=== PATIENT | male | born 1995 | race African-American/Black ===

== ENCOUNTER 2019-10-07 00:31 | Inpatient (IN) | payer SELFPAY ==
[~2019-10-07] VITALS: Ht 182.9 cm; Wt 90.9 kg
--- NOTE | 2019-10-07 00:49 | PHYS DOC ---
General Adult EDM: Chief Complaint: ABDOMINAL PAIN HPI: HPI: The history was obtained from the patient. Patient is a 24-year-old male with PMH occasional marijuana usage who presents with a chief complaint of abdominal pain. Patient states he had gradual onset abdominal pain 3 hours ago. He states the pain is aching in nature. He states it is constant. He states it is located in his epigastric and umbilicus region. He states he tried to eat a cheeseburger 1 hour ago and states it made the pain worse. Did try 2 Tylenol tablets at home which also made the pain worse. Denies vomiting but notes mild nausea. Denies fevers. Denies stool changes. Denies urinary symptoms. States that he smokes marijuana approximately every other day. Denies any history of similar complaints. Denies any abdominal surgical history. Denies alcohol usage. No other complaints. Review of Systems: Review of Systems: Constitutional: Denies fever or chills. [] Eyes: Denies change in visual acuity. [] HENT: Denies nasal congestion or sore throat. [] Respiratory: Denies cough or shortness of breath. [] Cardiovascular: Denies chest pain or edema. [] GI: Positive for abdominal pain : Denies dysuria. [] Musculoskeletal: Denies back pain or joint pain. [] Integument: Denies rash. [] Neurologic: Denies headache, focal weakness or sensory changes. [] Endocrine: Denies polyuria or polydipsia. [] Lymphatic: Denies swollen glands. [] Psychiatric: Denies depression or anxiety. [] Heart Score: Risk Factors: Risk Factors: DM, Current or recent (<one month) smoker, HTN, HLP, family history of CAD, obesity. Risk Scores: Score 0 - 3: 2.5% MACE over next 6 weeks - Discharge Home Score 4 - 6: 20.3% MACE over next 6 weeks - Admit for Clinical Observation Score 7 - 10: 72.7% MACE over next 6 weeks - Early Invasive Strategies Physical Exam: PE: Constitutional: Well developed, well nourished, no acute distress, non-toxic appearance. [] HENT: Normocephalic, atraumatic, bilateral external ears normal, oropharynx moist, no oral exudates, nose normal. [] Eyes: PERRLA, EOMI, conjunctiva normal, no discharge. [] Neck: Normal range of motion, no tenderness, supple, no stridor. [] Cardiovascular:Heart rate regular rhythm, no murmur [] Lungs & Thorax: Bilateral breath sounds clear to auscultation [] Abdomen: Mild reproducible tenderness to palpation in the epigastric and umbilicus regions. No involuntary guarding or rigidity noted. No acute peritonitis. Skin: Warm, dry, no erythema, no rash. [] Back: No tenderness, no CVA tenderness. [] Extremities: No tenderness, no cyanosis, no clubbing, ROM intact, no edema. [] Neurologic: Alert and oriented X 3, normal motor function, normal sensory function, no focal deficits noted. [] Psychologic: Affect normal, judgement normal, mood normal. [] Current Patient Data: Labs: Laboratory Tests Test 10/07/19 00:47 10/07/19 01:08 White Blood Count 5.8 x10^3/uL Red Blood Count 4.52 x10^6/uL Hemoglobin 14.2 g/dL Hematocrit 41.6 % Mean Corpuscular Volume 92 fL Mean Corpuscular Hemoglobin 31 pg Mean Corpuscular Hemoglobin Concent 34 g/dL Red Cell Distribution Width 13.6 % Platelet Count 230 x10^3/uL Neutrophils (%) (Auto) 62 % Lymphocytes (%) (Auto) 27 % Monocytes (%) (Auto) 7 % Eosinophils (%) (Auto) 2 % Basophils (%) (Auto) 1 % Neutrophils # (Auto) 3.6 x10^3/uL Lymphocytes # (Auto) 1.6 x10^3/uL Monocytes # (Auto) 0.4 x10^3/uL Eosinophils # (Auto) 0.1 x10^3/uL Basophils # (Auto) 0.1 x10^3/uL Sodium Level 138 mmol/L Potassium Level 2.9 mmol/L Chloride Level 101 mmol/L Carbon Dioxide Level 32 mmol/L Anion Gap 5 Blood Urea Nitrogen 7 mg/dL Creatinine 1.1 mg/dL Estimated GFR (Cockcroft-Gault) 83.7 BUN/Creatinine Ratio 6 Glucose Level 138 mg/dL Calcium Level 9.1 mg/dL Magnesium Level 1.9 mg/dL Total Bilirubin 0.8 mg/dL Aspartate Amino Transf (AST/SGOT) 35 U/L Alanine Aminotransferase (ALT/SGPT) 28 U/L Alkaline Phosphatase 51 U/L Total Protein 7.9 g/dL Albumin 3.8 g/dL Albumin/Globulin Ratio 0.9 Lipase 95 U/L Urine Collection Type Unknown Urine Color Yellow Urine Clarity Clear Urine pH 5.5 Urine Specific [place] 1.015 Urine Protein Negative mg/dL Urine Glucose (UA) Negative mg/dL Urine Ketones (Stick) Negative mg/dL Urine Blood Negative Urine Nitrite Negative Urine Bilirubin Negative Urine Urobilinogen Dipstick 0.2 mg/dL Urine Leukocyte Esterase Negative Urine RBC Rare /HPF Urine WBC 1-4 /HPF Urine Squamous Epithelial Cells Few /LPF Urine Bacteria 0 /HPF Urine Mucus Mod /LPF Current Medications Medications (Trade) Dose Ordered Sig/Enrique Route PRN Reason Start Time Stop Time Status Last Admin Dose Admin Sodium Chloride 1,000 ml @ 1,000 mls/hr 1X ONCE IV 10/07/19 01:15 10/07/19 02:14 DC 10/07/19 00:59 Ondansetron HCl (Zofran) 4 mg 1X ONCE IVP 10/07/19 01:15 10/07/19 01:16 DC 10/07/19 00:59 Morphine Sulfate (Morphine Sulfate) 4 mg 1X ONCE IV 10/07/19 01:15 10/07/19 01:16 DC Famotidine (Pepcid Vial) 20 mg 1X ONCE IVP 10/07/19 01:15 10/07/19 01:16 DC 10/07/19 00:59 Potassium Chloride/Water 100 ml @ 100 mls/hr Q1H IV 10/07/19 02:00 10/07/19 09:59 10/07/19 01:46 Magnesium Sulfate 50 ml @ 50 mls/hr 1X ONCE IV 10/07/19 01:30 10/07/19 02:29 DC 10/07/19 01:45 Iohexol (Omnipaque 300 Mg/ml) 75 ml 1X ONCE IV 10/07/19 02:00 10/07/19 02:01 DC 10/07/19 01:44 Info (CONTRAST GIVEN -- Rx MONITORING) 1 each PRN DAILY PRN MC SEE COMMENTS 10/07/19 01:30 10/09/19 01:29 Vital Signs: Vital Signs Date Time Temp Pulse Resp B/P (MAP) Pulse Ox O2 Delivery O2 Flow Rate FiO2 10/07/19 00:35 98.7 67 18 151/77 (101) 99 Room Air 98.7 EKG: EKG: EKG consistent with normal sinus rhythm. Ventricular rate of 59 bpm. Right axis noted. Nonspecific interventricular conduction delay present. No acute ischemic changes noted. [] Radiology/Procedures: Radiology/Procedures: [] [address] [place] [address] IMAGING REPORT Signed PATIENT: ADDI SINGH ACCOUNT: [id number] : 1995 LOCATION: ER AGE: 24 SEX: M EXAM STATUS: REG ER ORD. PHYSICIAN: REJI DOMÍNGUEZ DO REASON: diffuse abdominal pain, OMNI 300, 75 ML IV PROCEDURE: CT ABD PELV W/ IV CONTRST ONLY INDICATION: Reason: diffuse abdominal pain, OMNI 300, 75 ML IV / Spl. Instructions: / History: COMPARISON: None. TECHNIQUE: Axial CT images obtained through the abdomen and pelvis with contrast. One or more of the following individualized dose reduction techniques were utilized for this examination: 1. Automated exposure control; 2. Adjustment of the mA and/or kV according to patient size; 3. Use of iterative reconstruction technique. FINDINGS: Partial visualization of nodular opacity at the right chest base. Abdominal aorta is not aneurysmal. Mild periportal low density. No peripancreatic fluid collection. Spleen unremarkable. No hydronephrosis. Urinary bladder is largely decompressed. No dilated loops of bowel to suggest obstruction. The appendix is partially seen in the right lower quadrant with air within the lumen with other portions obscured by adjacent opacified loops of bowel. Does not appear grossly dilated in visualized portion. IMPRESSION: * No evidence of bowel obstruction or hydronephrosis. * The appendix is only partially seen secondary to unopacified loops of bowel in the region. Does not appear inflamed in the partially visualized portion. * Nodular opacity at the right lung base which could be from atelectasis but would correlate with infectious symptoms to ensure it is not infectious in nature. * Mild periportal edema. Could be related to the patient's hydration status but would correlate with symptoms and lab markers to ensure that there is not a pathologic cause such as hepatic or biliary inflammation. Electronically signed by: Po Mcguire MD (10/07/2019 2:18 AM) [id number] DICTATED and SIGNED BY: PO MCGUIRE MD DATE: 10/07/19217 Course & Med Decision Making: Course & Med Decision Making Pertinent Labs and Imaging studies reviewed. (See chart for details) Patient is a 24-year-old male who presents with chief complaint of acute onset abdominal pain. Initial vital signs unremarkable. Exam noted above. Chemistry notable for potassium of 2.9. Unclear etiology given the patient denies any vomiting or diarrhea. CT imaging reveals no acute surgical abnormality. Of note, mild periportal edema noticed. No signs of elevated liver enzymes. Bilirubin within normal limits. At this time no obvious identifiable surgical emergency. I do feel the patient benefit from hospitalization for potassium replacement. He is agreeable to this. Appropriate for hospitalization. Dragon Disclaimer: Dragon Disclaimer: This electronic medical record was generated, in whole or in part, using a voice recognition dictation system. Departure Departure Impression: Primary Impression: Hypokalemia Additional Impressions: Abdominal pain Qualified Codes: R10.84 - Generalized abdominal pain Abnormal abdominal CT scan Disposition: HOME, SELF-CARE Condition: STABLE Justicifation of Admission Dx: Justifications for Admission: Justification of Admission Dx: Yes Chronic Renal Failure: Electrolyte Abnormality REJI DOMÍNGUEZ DO Oct 07, 2019 00:49
[2019-10-07 00:55] LABS: BASO # 0.1 x10^3/uL (0.0-0.2); BASO % 1 % (0-3); EOS # 0.1 x10^3/uL (0.0-0.7); EOS % 2 % (0-3); HEMATOCRIT 41.6 % (39.0-53.0); HEMOGLOBIN 14.2 g/dL (13.0-17.5); LYMPH # 1.6 x10^3/uL (1.0-4.8); LYMPH % 27 % (24-48); MEAN CORPUSCULAR HEMOGLOBIN 31 pg (25-35); MEAN CORPUSCULAR HGB CONC 34 g/dL (31-37); MEAN CORPUSCULAR VOLUME 92 fL (79-100); MONO # 0.4 x10^3/uL (0.0-1.1); MONO % 7 % (0-9); NEUT # 3.6 x10^3/uL (1.8-7.7); NEUT % 62 % (31-73); PLATELET COUNT 230 x10^3/uL (140-400); RED BLOOD COUNT 4.52 x10^6/uL (4.30-5.70); RED CELL DISTRIBUTION WIDTH 13.6 % (11.5-14.5); WHITE BLOOD COUNT 5.8 x10^3/uL (4.0-11.0)
[2019-10-07 01:08] LABS: ALBUMIN 3.8 g/dL (3.4-5.0); ALBUMIN/GLOBULIN RATIO 0.9 (1.0-1.7); CALCIUM 9.1 mg/dL (8.5-10.1); CREATININE 1.1 mg/dL (0.7-1.3); GFR 83.7; TOTAL BILIRUBIN 0.8 mg/dL (0.2-1.0); TOTAL PROTEIN 7.9 g/dL (6.4-8.2)
[2019-10-07 01:13] LABS: POTASSIUM 2.9 mmol/L (3.5-5.1)
[2019-10-07 01:14] LABS: BILIRUBIN,URINE NEGATIVE (NEG); CLARITY,URINE CLEAR; COLOR,URINE YELLOW; NITRITE,URINE NEGATIVE (NEG); PH,URINE 5.5 (<5.0-8.0); PROTEIN,URINE NEGATIVE (NEG-TRACE); UROBILINOGEN,URINE 0.2 mg/dL (0.2 mg/dL)
[2019-10-07] MEDS ORDERED: IV NORMAL SALINE 1000ML BAG 1,000 ML IV ONE (01:15)
[2019-10-07] MEDS ORDERED: MORPHINE SULFATE 4 MG/ML VIAL. IV ONE (01:15)
[2019-10-07] MEDS ORDERED: ONDANSETRON PF 4 MG/2 ML VIAL. IVP ONE (01:15)
[2019-10-07] MEDS ORDERED: FAMOTIDINE 20 MG/2 ML VIAL IVP ONE (01:15)
[2019-10-07 01:24] LABS: SQUAMOUS EPITHELIAL CELL,UR FEW /LPF
[2019-10-07 01:25] LABS: BACTERIA,URINE 0 /HPF (0-FEW); RBC,URINE RARE /HPF (0-2)
[2019-10-07] MEDS ORDERED: CONTRAST GIVEN. MC PRN (01:30)
[2019-10-07] MEDS ORDERED: MAGNESIUM SULFATE 2GM 50 ML IV ONE (01:30)
[2019-10-07] MEDS: POTASSIUM CHLORIDE 10MEQ 100 ML IV SCH ×5 (01:46→08:00)
[2019-10-07] MEDS ORDERED: IOHEXOL 300 MG/ML 100ML VIAL. IV ONE (02:00)
--- NOTE | 2019-10-07 02:21 | RAD ---
INDICATION: Reason: diffuse abdominal pain, OMNI 300, 75 ML IV / Spl. Instructions: / History: COMPARISON: None. TECHNIQUE: Axial CT images obtained through the abdomen and pelvis with contrast. One or more of the following individualized dose reduction techniques were utilized for this examination: 1. Automated exposure control; 2. Adjustment of the mA and/or kV according to patient size; 3. Use of iterative reconstruction technique. FINDINGS: Partial visualization of nodular opacity at the right chest base. Abdominal aorta is not aneurysmal. Mild periportal low density. No peripancreatic fluid collection. Spleen unremarkable. No hydronephrosis. Urinary bladder is largely decompressed. No dilated loops of bowel to suggest obstruction. The appendix is partially seen in the right lower quadrant with air within the lumen with other portions obscured by adjacent opacified loops of bowel. Does not appear grossly dilated in visualized portion. IMPRESSION: * No evidence of bowel obstruction or hydronephrosis. * The appendix is only partially seen secondary to unopacified loops of bowel in the region. Does not appear inflamed in the partially visualized portion. * Nodular opacity at the right lung base which could be from atelectasis but would correlate with infectious symptoms to ensure it is not infectious in nature. * Mild periportal edema. Could be related to the patient's hydration status but would correlate with symptoms and lab markers to ensure that there is not a pathologic cause such as hepatic or biliary inflammation. Electronically signed by: Adonis Vallejo MD (10/07/2019 2:18 AM) [id number]
[2019-10-07] MEDS ORDERED: MORPHINE SULFATE 4 MG/ML VIAL. IV PRN (02:45)
[2019-10-07] MEDS ORDERED: ONDANSETRON PF 4 MG/2 ML VIAL. IV PRN ×2 (02:45→07:30)
--- NOTE | 2019-10-07 07:16 | EKG ---
[facility] [address] [place] [address] Test Date: 2019-10-07 Test Time: 03:15:09 Pat Name: ADDI SINGH Department: Room: Gender: M Development And Housing Director: : 1995 Requested By: REJI DOMÍNGUEZ Order Number: [id number] Reading MD: Measurements Intervals [place] Rate: 59 P: 54 CA: 208 QRS: 115 QRSD: 102 T: 71 QT: 416 QTc: 416 Interpretive Statements SINUS RHYTHM ABNORMAL RIGHT AXIS DEVIATION LEFT POSTERIOR FASCICULAR BLOCK ABNORMAL ECG RI6.02 No previous ECG available for comparison
--- NOTE | 2019-10-07 07:41 | PDOC1 ---
History and Physical Date of Admission Date of Admission DATE: 10/07/19 TIME: 07:38 Identification/Chief Complaint Chief Complaint Abdominal pain Source Source: Patient History of Present Illness History of Present Illness Mr Watters is a 24-year-old male with PMH occasional marijuana usage who presents with a chief complaint of abdominal pain. Patient states he had gradual onset abdominal pain 3 hours prior to ED arrival He states the pain is aching in nature. He states it is constant. He states it is located in his epigastric and umbilicus region. He states he tried to eat a cheeseburger 1 hour ago and states it made the pain worse. Did try 2 Tylenol tablets at home which also made the pain worse. vomiting and mild nausea. Denies fevers. He did have 3 episodes of diarrhea overnight.. Denies urinary symptoms. States that he smokes marijuana approximately every other day. Denies any history of similar complaints. Denies any abdominal surgical history. Denies alcohol usage. No other complaints. He does note that he ate some reheated chicken the night before with canned green beans that were reheated and tasted "off". Labs significant for NA 138, K2.9, CR 1.1, mag 1.9 EKG NSR with rightward axis otherwise no ST segment or T wave changes. CT abdomen pelvis with no evidence of bowel obstruction or hydronephrosis and appendix does not appear inflamed in the partially visualized portion, noted with periportal edema. Admitted for further treatment. Past Medical History Cardiovascular: No pertinent hx Past Surgical History Past Surgical History: No pertinent history Family History Family History: Hypertension Social History Smoke: No ALCOHOL: rare Drugs: Marijuana Current Problem List Problem List Problems Medical Problems: (1) Abdominal pain Status: Acute (2) Abnormal abdominal CT scan Status: Acute (3) Hypokalemia Status: Acute Current Medications Current Medications Current Medications Sodium Chloride 1,000 ml @ 1,000 mls/hr 1X ONCE IV Last administered on 10/07/19at 00:59; Start 10/07/19 at 01:15; Stop 10/07/19 at 02:14; Status DC Ondansetron HCl (Zofran) 4 mg 1X ONCE IVP Last administered on 10/07/19at 00:59; Start 10/07/19 at 01:15; Stop 10/07/19 at 01:16; Status DC Morphine Sulfate (Morphine Sulfate) 4 mg 1X ONCE IV ; Start 10/07/19 at 01:15; Stop 10/07/19 at 01:16; Status DC Famotidine (Pepcid Vial) 20 mg 1X ONCE IVP Last administered on 10/07/19at 00:59; Start 10/07/19 at 01:15; Stop 10/07/19 at 01:16; Status DC Potassium Chloride/Water 100 ml @ 100 mls/hr Q1H IV Last administered on 10/07/19at 06:06; Start 10/07/19 at 02:00; Stop 10/07/19 at 09:59 Magnesium Sulfate 50 ml @ 50 mls/hr 1X ONCE IV Last administered on 10/07/19at 01:45; Start 10/07/19 at 01:30; Stop 10/07/19 at 02:29; Status DC Iohexol (Omnipaque 300 Mg/ml) 75 ml 1X ONCE IV Last administered on 10/07/19at 01:44; Start 10/07/19 at 02:00; Stop 10/07/19 at 02:01; Status DC Info (CONTRAST GIVEN -- Rx MONITORING) 1 each PRN DAILY PRN MC SEE COMMENTS; Start 10/07/19 at 01:30; Stop 10/09/19 at 01:29 Ondansetron HCl (Zofran) 4 mg PRN Q8HRS PRN IV NAUSEA/VOMITING 1ST CHOICE; Start 10/07/19 at 02:45; Stop 10/07/19 at 07:18; Status DC Morphine Sulfate (Morphine Sulfate) 4 mg PRN Q2HR PRN IV SEVERE PAIN 7-10; Start 10/07/19 at 02:45; Stop 10/08/19 at 02:44 Ondansetron HCl (Zofran) 4 mg PRN Q4HRS PRN IV NAUSEA/VOMITING 1ST CHOICE; Start 10/07/19 at 07:30 Allergies Allergies: Coded Allergies: No Known Drug Allergies (Unverified , 10/07/19) ROS General: No: Chills, Night Sweats, Fatigue, Malaise, Appetite, Other PSYCHOLOGICAL ROS: No: Anxiety, Behavioral Disorder, Concentration difficultie, Decreased libido, Depression, Disorientation, Hallucinations, Hostility, Irritablity, Memory difficulties, Mood Swings, Obsessive thoughts, Physical abuse, Sexual abuse, Sleep disturbances, Suicidal ideation, Other Eyes: No Blurry vision, No Decreased vision, No Double vision, No Dry eyes, No Excessive tearing, No Eye Pain, No Itchy Eyes, No Loss of vision, No Photophobia, No Scotomata, No Uses contacts, No Uses glasses, No Other HEENT: No: Heacaches, Visual Changes, Hearing change, Nasal congestion, Nasal discharge, Oral lesions, Sinus pain, Sore Throat, Epistaxis, Sneezing, Snoring, Tinnitus, Vertigo, Vocal changes, Other ALLERGY AND IMMUNOLOGY: No: Hives, Insect Bite Sensitivity, Itchy/Watery Eyes, Nasal Congestion, Post Nasal Drip, Seasonal Allergies, Other Hematological and Lymphatic: No: Bleeding Problems, Blood Clots, Blood Transfusions, Brusing, Night Sweats, Pallor, Swollen Lymph Nodes, Other ENDOCRINE: No: Breast Changes, Galactorrhea, Hair Pattern Changes, Hot Flashes, Malaise/lethargy, Mood Swings, Palpitations, Polydipsia/polyuria, Skin Changes, Temperature Intolerance, Unexpected Weight Changes, Other Breast: No New/Changing Breast Lumps, No Nipple changes, No Nipple discharge, No Other Respiratory: No: Cough, Hemoptysis, Orthopnea, Pleuritic Pain, Shortness of breath, SOB with excertion, Sputum Changes, Stridor, Tachypnea, Wheezing, Other Cardiovascular: No Chest Pain, No Palpitations, No Orthopnea, No Paroxysmal Noc. Dyspnea, No Edema, No Lt Headedness, No Other Gastrointestinal: Yes Nausea, Yes Vomiting, Yes Abdominal Pain, Yes Diarrhea; No Constipation, No Melena, No Hematochezia, No Other Genitourinary: No Dysuria, No Frequency, No Incontinence, No Hematuria, No Retention, No Discharge, No Urgency, No Pain, No Flank Pain, No Other, No , No , No , No , No , No , No Musculoskeletal: No Gait Disturbance, No Joint Pain, No Joint Stiffness, No Lashaun nt Swelling, No Muscle Pain, No Muscular Weakness, No Pain In:, No Swelling In:, No Other Neurological: No Behavorial Changes, No Bowel/Bladder ControlChng, No Confusion, No Dizziness, No Gait Disturbance, No Headaches, No Impaired Co ord/balance, No Memory Loss, No Numbness/Tingling, No Seizures, No Speech Problems, No Tremors, No Visual Changes, No Weakness, No Other Skin: No Dry Skin, No Eczema, No Hair Changes, No Lumps, No Mole Changes, No Mottling, No Nail Changes, No Pruritus, No Rash, No Skin Lesion Changes, No Other, No Acne Physical Exam General: Alert, Oriented X3, Cooperative, No acute distress HEENT: Atraumatic, PERRLA, EOMI, Mucous membr. moist/pink Lungs: Clear to auscultation, Normal air movement Heart: S1S2, RRR, no thrills, no rubs, no gallops, no murmurs Abdomen: Normal bowel sounds, Soft, No tenderness, No hepatosplenomegaly, No masses Rectal Exam: not examined Extremities: No clubbing, No cyanosis, No edema, Normal pulses, No tenderness/swelling Skin: No rashes, No breakdown, No significant lesion Neuro: Normal gait, Normal speech, Strength at 5/5 X4 ext, Normal tone, Sensation intact, Cranial nerves 3-12 NL, Reflexes 2+ Psych/Mental Status: Mental status NL, Mood NL Vitals Vitals Vital Signs Date Time Temp Pulse Resp B/P (MAP) Pulse Ox O2 Delivery O2 Flow Rate FiO2 10/07/19 00:35 98.7 67 18 151/77 (101) 99 Room Air 98.7 Labs Labs Laboratory Tests Test 10/07/19 00:47 10/07/19 01:08 White Blood Count 5.8 x10^3/uL (4.0-11.0) Red Blood Count 4.52 x10^6/uL (4.30-5.70) Hemoglobin 14.2 g/dL (13.0-17.5) Hematocrit 41.6 % (39.0-53.0) Mean Corpuscular Volume 92 fL (79-100) Mean Corpuscular Hemoglobin 31 pg (25-35) Mean Corpuscular Hemoglobin Concent 34 g/dL (31-37) Red Cell Distribution Width 13.6 % (11.5-14.5) Platelet Count 230 x10^3/uL (140-400) Neutrophils (%) (Auto) 62 % (31-73) Lymphocytes (%) (Auto) 27 % (24-48) Monocytes (%) (Auto) 7 % (0-9) Eosinophils (%) (Auto) 2 % (0-3) Basophils (%) (Auto) 1 % (0-3) Neutrophils # (Auto) 3.6 x10^3/uL (1.8-7.7) Lymphocytes # (Auto) 1.6 x10^3/uL (1.0-4.8) Monocytes # (Auto) 0.4 x10^3/uL (0.0-1.1) Eosinophils # (Auto) 0.1 x10^3/uL (0.0-0.7) Basophils # (Auto) 0.1 x10^3/uL (0.0-0.2) Sodium Level 138 mmol/L (136-145) Potassium Level 2.9 mmol/L (3.5-5.1) Chloride Level 101 mmol/L (98-107) Carbon Dioxide Level 32 mmol/L (21-32) Anion Gap 5 (6-14) Blood Urea Nitrogen 7 mg/dL (8-26) Creatinine 1.1 mg/dL (0.7-1.3) Estimated GFR (Cockcroft-Gault) 83.7 BUN/Creatinine Ratio 6 (6-20) Glucose Level 138 mg/dL (70-99) Calcium Level 9.1 mg/dL (8.5-10.1) Magnesium Level 1.9 mg/dL (1.8-2.4) Total Bilirubin 0.8 mg/dL (0.2-1.0) Aspartate Amino Transf (AST/SGOT) 35 U/L (15-37) Alanine Aminotransferase (ALT/SGPT) 28 U/L (16-63) Alkaline Phosphatase 51 U/L (46-116) Total Protein 7.9 g/dL (6.4-8.2) Albumin 3.8 g/dL (3.4-5.0) Albumin/Globulin Ratio 0.9 (1.0-1.7) Lipase 95 U/L (73-393) Urine Collection Type Unknown Urine Color Yellow Urine Clarity Clear Urine pH 5.5 (<5.0-8.0) Urine Specific [place] 1.015 (1.000-1.030) Urine Protein Negative mg/dL (NEG-TRACE) Urine Glucose (UA) Negative mg/dL (NEG) Urine Ketones (Stick) Negative mg/dL (NEG) Urine Blood Negative (NEG) Urine Nitrite Negative (NEG) Urine Bilirubin Negative (NEG) Urine Urobilinogen Dipstick 0.2 mg/dL (0.2 mg/dL) Urine Leukocyte Esterase Negative (NEG) Urine RBC Rare /HPF (0-2) Urine WBC 1-4 /HPF (0-4) Urine Squamous Epithelial Cells Few /LPF Urine Bacteria 0 /HPF (0-FEW) Urine Mucus Mod /LPF Laboratory Tests Test 10/07/19 00:47 10/07/19 01:08 White Blood Count 5.8 x10^3/uL (4.0-11.0) Red Blood Count 4.52 x10^6/uL (4.30-5.70) Hemoglobin 14.2 g/dL (13.0-17.5) Hematocrit 41.6 % (39.0-53.0) Mean Corpuscular Volume 92 fL (79-100) Mean Corpuscular Hemoglobin 31 pg (25-35) Mean Corpuscular Hemoglobin Concent 34 g/dL (31-37) Red Cell Distribution Width 13.6 % (11.5-14.5) Platelet Count 230 x10^3/uL (140-400) Neutrophils (%) (Auto) 62 % (31-73) Lymphocytes (%) (Auto) 27 % (24-48) Monocytes (%) (Auto) 7 % (0-9) Eosinophils (%) (Auto) 2 % (0-3) Basophils (%) (Auto) 1 % (0-3) Neutrophils # (Auto) 3.6 x10^3/uL (1.8-7.7) Lymphocytes # (Auto) 1.6 x10^3/uL (1.0-4.8) Monocytes # (Auto) 0.4 x10^3/uL (0.0-1.1) Eosinophils # (Auto) 0.1 x10^3/uL (0.0-0.7) Basophils # (Auto) 0.1 x10^3/uL (0.0-0.2) Sodium Level 138 mmol/L (136-145) Potassium Level 2.9 mmol/L (3.5-5.1) Chloride Level 101 mmol/L (98-107) Carbon Dioxide Level 32 mmol/L (21-32) Anion Gap 5 (6-14) Blood Urea Nitrogen 7 mg/dL (8-26) Creatinine 1.1 mg/dL (0.7-1.3) Estimated GFR (Cockcroft-Gault) 83.7 BUN/Creatinine Ratio 6 (6-20) Glucose Level 138 mg/dL (70-99) Calcium Level 9.1 mg/dL (8.5-10.1) Magnesium Level 1.9 mg/dL (1.8-2.4) Total Bilirubin 0.8 mg/dL (0.2-1.0) Aspartate Amino Transf (AST/SGOT) 35 U/L (15-37) Alanine Aminotransferase (ALT/SGPT) 28 U/L (16-63) Alkaline Phosphatase 51 U/L (46-116) Total Protein 7.9 g/dL (6.4-8.2) Albumin 3.8 g/dL (3.4-5.0) Albumin/Globulin Ratio 0.9 (1.0-1.7) Lipase 95 U/L (73-393) Urine Collection Type Unknown Urine Color Yellow Urine Clarity Clear Urine pH 5.5 (<5.0-8.0) Urine Specific [place] 1.015 (1.000-1.030) Urine Protein Negative mg/dL (NEG-TRACE) Urine Glucose (UA) Negative mg/dL (NEG) Urine Ketones (Stick) Negative mg/dL (NEG) Urine Blood Negative (NEG) Urine Nitrite Negative (NEG) Urine Bilirubin Negative (NEG) Urine Urobilinogen Dipstick 0.2 mg/dL (0.2 mg/dL) Urine Leukocyte Esterase Negative (NEG) Urine RBC Rare /HPF (0-2) Urine WBC 1-4 /HPF (0-4) Urine Squamous Epithelial Cells Few /LPF Urine Bacteria 0 /HPF (0-FEW) Urine Mucus Mod /LPF Images Images CT abdomen/pelvis: Partial visualization of nodular opacity at the right chest base. Abdominal aorta is not aneurysmal. Mild periportal low density. No peripancreatic fluid collection. Spleen unremarkable. No hydronephrosis. Urinary bladder is largely decompressed. No dilated loops of bowel to suggest obstruction. The appendix is partially seen in the right lower quadrant with air within the lumen with other portions obscured by adjacent opacified loops of bowel. Does not appear grossly dilated in visualized portion. IMPRESSION: * No evidence of bowel obstruction or hydronephrosis. * The appendix is only partially seen secondary to unopacified loops of bowel in the region. Does not appear inflamed in the partially visualized portion. * Nodular opacity at the right lung base which could be from atelectasis but would correlate with infectious symptoms to ensure it is not infectious in nature. * Mild periportal edema. Could be related to the patient's hydration status but would correlate with symptoms and lab markers to ensure that there is not a pathologic cause such as hepatic or biliary inflammation. VTE Prophylaxis Ordered VTE Prophylaxis Devices: No VTE Pharmacological Prophylaxi: No Assessment/Plan Assessment/Plan A/P: Hypokalemia - IV replacement 80meq, will replace 1 g mag. Repeat later today. Intractable nausea and vomiting - improved with IV antiemetics. likely gastroenteritis from reheated food Diarrhea - already resolved, likely food poisoning FEN - NPO, will try ADAT PPX - SCDs FULL CODE Dispo - inpatient for hypokalemia Justifications for Admission Other Justification GERARDO SHAW MD Oct 07, 2019 07:40
[2019-10-07] MEDS ORDERED: IPRATRPIUM/ALBUTEROL 0.5/2.5MG 3 ML NEBU. NEB SCH (08:30)
[2019-10-07] MEDS ORDERED: CETIRIZINE HCL 10 MG TABLET. PO SCH (09:00)
[2019-10-07] MEDS ORDERED: FAMOTIDINE 20 MG/2 ML VIAL IVP SCH (09:00)
[2019-10-07 09:36] LABS: CALCIUM 8.3 mg/dL (8.5-10.1); GFR 113.1; POTASSIUM 4.2 mmol/L (3.5-5.1)
[2019-10-07 10:00] VITALS: BP 118/60
--- NOTE | 2019-10-08 16:48 | PDOC3 ---
Discharge Summary Visit Information Date of Admission: Oct 07, 2019 Date of Discharge: Oct 07, 2019 Admitting Diagnosis: Hypokalemia Final Diagnosis Problems Medical Problems: (1) Abdominal pain Status: Acute (2) Abnormal abdominal CT scan Status: Acute (3) Hypokalemia Status: Acute Brief Hospital Course Allergies Allergies Coded Allergies Type Severity Reaction Last Updated Verified No Known Drug Allergies 10/07/19 No Vital Signs Vital Signs Date Time Temp Pulse Resp B/P (MAP) Pulse Ox O2 Delivery O2 Flow Rate FiO2 10/07/19 10:00 60 18 118/60 (79) 98 Room Air Lab Results Laboratory Tests Test 10/07/19 00:47 10/07/19 01:08 10/07/19 07:45 White Blood Count 5.8 x10^3/uL (4.0-11.0) Red Blood Count 4.52 x10^6/uL (4.30-5.70) Hemoglobin 14.2 g/dL (13.0-17.5) Hematocrit 41.6 % (39.0-53.0) Mean Corpuscular Volume 92 fL (79-100) Mean Corpuscular Hemoglobin 31 pg (25-35) Mean Corpuscular Hemoglobin Concent 34 g/dL (31-37) Red Cell Distribution Width 13.6 % (11.5-14.5) Platelet Count 230 x10^3/uL (140-400) Neutrophils (%) (Auto) 62 % (31-73) Lymphocytes (%) (Auto) 27 % (24-48) Monocytes (%) (Auto) 7 % (0-9) Eosinophils (%) (Auto) 2 % (0-3) Basophils (%) (Auto) 1 % (0-3) Neutrophils # (Auto) 3.6 x10^3/uL (1.8-7.7) Lymphocytes # (Auto) 1.6 x10^3/uL (1.0-4.8) Monocytes # (Auto) 0.4 x10^3/uL (0.0-1.1) Eosinophils # (Auto) 0.1 x10^3/uL (0.0-0.7) Basophils # (Auto) 0.1 x10^3/uL (0.0-0.2) Sodium Level 138 mmol/L (136-145) 139 mmol/L (136-145) Potassium Level 2.9 mmol/L (3.5-5.1) 4.2 mmol/L (3.5-5.1) Chloride Level 101 mmol/L (98-107) 104 mmol/L (98-107) Carbon Dioxide Level 32 mmol/L (21-32) 29 mmol/L (21-32) Anion Gap 5 (6-14) 6 (6-14) Blood Urea Nitrogen 7 mg/dL (8-26) 8 mg/dL (8-26) Creatinine 1.1 mg/dL (0.7-1.3) 1.0 mg/dL (0.7-1.3) Estimated GFR (Cockcroft-Gault) 83.7 113.1 BUN/Creatinine Ratio 6 (6-20) Glucose Level 138 mg/dL (70-99) 96 mg/dL (70-99) Calcium Level 9.1 mg/dL (8.5-10.1) 8.3 mg/dL (8.5-10.1) Magnesium Level 1.9 mg/dL (1.8-2.4) Total Bilirubin 0.8 mg/dL (0.2-1.0) Aspartate Amino Transf (AST/SGOT) 35 U/L (15-37) Alanine Aminotransferase (ALT/SGPT) 28 U/L (16-63) Alkaline Phosphatase 51 U/L (46-116) Total Protein 7.9 g/dL (6.4-8.2) Albumin 3.8 g/dL (3.4-5.0) Albumin/Globulin Ratio 0.9 (1.0-1.7) Lipase 95 U/L (73-393) Urine Collection Type Unknown Urine Color Yellow Urine Clarity Clear Urine pH 5.5 (<5.0-8.0) Urine Specific [place] 1.015 (1.000-1.030) Urine Protein Negative mg/dL (NEG-TRACE) Urine Glucose (UA) Negative mg/dL (NEG) Urine Ketones (Stick) Negative mg/dL (NEG) Urine Blood Negative (NEG) Urine Nitrite Negative (NEG) Urine Bilirubin Negative (NEG) Urine Urobilinogen Dipstick 0.2 mg/dL (0.2 mg/dL) Urine Leukocyte Esterase Negative (NEG) Urine RBC Rare /HPF (0-2) Urine WBC 1-4 /HPF (0-4) Urine Squamous Epithelial Cells Few /LPF Urine Bacteria 0 /HPF (0-FEW) Urine Mucus Mod /LPF Brief Hospital Course Mr Watters is a 24-year-old male with PMH occasional marijuana usage who presents with a chief complaint of abdominal pain. Patient states he had gradual onset abdominal pain 3 hours prior to ED arrival He states the pain is aching in nature. He states it is constant. He states it is located in his epigastric and umbilicus region. He states he tried to eat a cheeseburger 1 hour ago and states it made the pain worse. Did try 2 Tylenol tablets at home which also made the pain worse. vomiting and mild nausea. Denies fevers. He did have 3 episodes of diarrhea overnight.. Denies urinary symptoms. States that he smokes marijuana approximately every other day. Denies any history of similar complaints. Denies any abdominal surgical history. Denies alcohol usage. No other complaints. He does note that he ate some reheated chicken the night before with canned green beans that were reheated and tasted "off". Labs significant for NA 138, K2.9, CR 1.1, mag 1.9 EKG NSR with rightward axis otherwise no ST segment or T wave changes. CT abdomen pelvis with no evidence of bowel obstruction or hydronephrosis and appendix does not appear inflamed in the partially visualized portion, noted with periportal edema. Admitted for further treatment. Hypokalemia - IV replacement 80meq, will replace 1 g mag. Repeat later today improved. Intractable nausea and vomiting - improved with IV antiemetics. likely gastroenteritis from reheated food Diarrhea - already resolved, likely food poisoning His potassium improved to 4.2 after replacement, is able to eat 2 meals without any further pain or vomiting. Likely this is self-limiting gastroenteritis advised not really green beans. Greater than 135 minutes spent on secondary discharge. Discharge Information Condition at Discharge: Improved Follow Up: Weeks (2) Disposition/Orders: D/C to Home No Active Prescriptions or Reported Meds Justicifation of Admission Dx: Justifications for Admission: Justification of Admission Dx: Yes Chronic Renal Failure: Electrolyte Abnormality GERARDO SHAW MD Oct 08, 2019 16:48
== END 2019-10-07 11:25 | disposition home or self-care (01) | DRG 392 ==
LOC: ER 00:31 → ED HOLD 02:51
PROVIDERS: ADMIT Internal Medicine; ATTEND Internal Medicine
DX: A05.9 Bacterial foodborne intoxication, unspecified (principal); K52.9 Noninfective gastroenteritis and colitis, unspecified; E87.6 Hypokalemia; F12.90 Cannabis use, unspecified, uncomplicated; Z82.49 Family history of ischemic heart disease and other diseases of the circulatory system; Z79.899 Other long term (current) drug therapy
CPT/HCPCS: 36415; 74177; 80048; 80053; 81001; 83690; 83735; 85025; 93005; 96361; 96365; 96375; 99285; J2405; J3475; J3480; J3490; J7030; Q9967